=== PATIENT | female | born 1935 | race Caucasian/White ===

== ENCOUNTER 2016-09-23 09:44 | Emergency (ER) | payer OTHER, BC ==
--- NOTE | 2016-09-23 09:47 | EDPHY ---
H & P Time Seen by Provider: 09/23/16 09:44 HPI/ROS: CHIEF COMPLAINT: Shortness of breath. HISTORY OF PRESENT ILLNESS: This is an 81-year-old female with a history of COPD who has had productive cough x 1 week presenting via EMS. This morning at 0200 and 0600 she had episodes of shortness of breath. She used nebulizer treatments with some relief. She admits associated headache this morning. Denies chest pain. She reports that since last week she has woken up with difficulty breathing due to chest congestion and phlegm in her throat. She uses 2L Oxygen at night for sleep apnea. EMS administered 3ml IH DuoNeb en route. REVIEW OF SYSTEMS: Constitutional: No fever, no chills Eyes: No visual changes ENT: No sore throat Respiratory: See HPI. Cardiac: No chest pain Gastrointestinal: No nausea, no vomiting, no abdominal pain Genitourinary: no dysuria Musculoskeletal: No leg pain or swelling Skin: No rash Neurological: no weakness Psychiatric: No depression Past Medical/Surgical History: COPD, right shoulder surgery, spinal fusion, cellulitis, hysterectomy, bipolar disorder, hypothyroidism, sleep apnea, bladder suspension. Social History: Lives alone. Smoking Status: Former smoker Physical Exam: General Appearance: Alert, smiling, pleasant Eyes: Pupils equal and round, no conjunctival pallor or injection ENT, Mouth: Mucous membranes moist Neck: Normal inspection Respiratory: Normal respiratory rate, scattered end-expiratory wheezing with coughing only. Cardiovascular: Regular rate and rhythm Gastrointestinal: Abdomen is soft and non-tender Neurological: A&O, nonfocal exam Skin: Warm and dry, no rash Extremities: Nontender, no pedal edema Psychiatric: Mood and affect normal Constitutional: Initial Vital Signs Temperature (C) 36.6 C 09/23/16 09:44 Heart Rate 95 09/23/16 09:44 Respiratory Rate 20 09/23/16 09:44 Blood Pressure 109/88 H 09/23/16 09:44 O2 Sat (%) 96 09/23/16 09:44 O2 Delivery Mode Room Air O2 (L/minute) 2 Allergies/Adverse Reactions: codeine [Codeine] Allergy (Severe, Verified 10/31/15 09:45) Nausea levofloxacin [From Levaquin] Allergy (Severe, Verified 10/31/15 09:45) Delirium meperidine HCl [From Demerol] Allergy (Severe, Verified 10/31/15 09:45) Suppressed Respirations Sulfa (Sulfonamide Antibiotics) Allergy (Severe, Verified 10/31/15 09:45) Rash aripiprazole [From Abilify] Allergy (Intermediate, Verified 10/31/15 09:45) hallucinations diazepam [From Valium] Allergy (Verified 10/31/15 09:45) hydromorphone HCl [From Dilaudid] Allergy (Verified 10/31/15 09:45) morphine Allergy (Verified 10/31/15 09:45) Respiratory Arrest Home Medications: Medication Instructions Recorded Escitalopram Oxalate [Lexapro 10 20 mg PO DAILY 02/10/12 MG] Levothyroxine [Synthroid 75 mcg 75 mcg PO DAILY06 02/10/12 (*)] lamOTRIGine [Lamotrigine] 200 mg PO DAILY 02/10/12 Quetiapine Fumarate [Seroquel Xr] 225 mg PO HS 11/13/13 Cholecalciferol Vit D3 [Vitamin D3 2,000 units PO DAILY 08/14/14 (*)] Cyanocobalamin [Vitamin B12 (*)] 500 mcg PO DAILY 08/14/14 Herbals/Supplements -Info Only 1 ea PO DAILY 08/14/14 Thiamine HCl [Vitamin B-1] 100 mg PO DAILY8 08/14/14 Albuterol [Proventil] 2 inh IH BID PRN 08/21/14 Meclizine HCl [Meclizine HCl 25 mg 25 mg PO BID PRN #10 tab 12/07/15 (RX,OTC)] Hydrocodone/APAP 5/325 [[place] 1 - 2 tab PO Q4 PRN #10 tab 01/03/16 5/325 (RX)] Doxycycline Hyclate 100 mg PO BID #20 tablet 09/23/16 predniSONE 1 tab PO DAILY #15 tab 09/23/16 Medical Decision Making - Diagnostics EKG Interpretation: The 12 lead EKG was interpreted by myself. See hard copy and/or "tracemaster" electronic copy for interpretation. Sinus rhythm rate 90. Left axis deviations, borderline R wave progression, anterior leads. Imaging: Chest x-ray reviewed by me reveals no acute disease. ED Course/Re-evaluation: This patient presents with a one-week history of productive cough and episodic shortness of breath, somewhat relieved with home nebulizers, now resolved. On exam oxygen saturation is 94% on room air and she has scattered expiratory wheezing only. There is no evidence of pneumonia on chest x-ray. Solu-Medrol 125 mg IV given. I doubt acute coronary syndrome. Given that the shortness of breath started 8+ hours ago, I will check a troponin. If the troponin is normal , I feel that I can safely exclude acute coronary syndrome. An IV was established and labs ordered. Chest x-ray, EKG ordered. 1037: Patient was ambulated through the emergency department. She felt slightly dizzy and her oxygen saturation was 90% on room air. This is likely because she did not eat this morning and hardly slept at all. I will reassess her after she eats breakfast. 1250: Reassessed patient. She is feeling better and ambulated without difficulty the second time. She wants to go home. Her daughter will take her home. She was given return precautions and warnings prior to leaving. I answered all of her questions. She is comfortable with the plan. Differential Diagnosis: Differential diagnosis includes does not limited to pneumonia, persistent bronchospasm, hypoxia, pulmonary embolism, acute coronary syndrome. - Data Points Laboratory Results: Laboratory Results 09/23/16 09:47 09/23/16 09:47 09/23/16 09/23/16 11:24 09:47 WBC 8.21 10^3/uL (3.80-9.50) RBC 4.33 10^6/uL (4.18-5.33) Hgb 13.9 g/dL (12.6-16.3) Hct 42.1 % (38.0-47.0) MCV 97.2 fL (81.5-99.8) MCH 32.1 pg (27.9-34.1) MCHC 33.0 g/dL (32.4-36.7) RDW 12.3 % (11.5-15.2) Plt Count 251 10^3/uL (150-400) MPV 9.8 fL (8.7-11.7) Neut % (Auto) 54.7 % (39.3-74.2) Lymph % (Auto) 30.7 % (15.0-45.0) [place] % (Auto) 7.6 % (4.5-13.0) Eos % (Auto) 5.4 % (0.6-7.6) Baso % (Auto) 1.1 % (0.3-1.7) Nucleat RBC Rel Count 0.0 % (0.0-0.2) Absolute Neuts (auto) 4.50 10^3/uL (1.70-6.50) Absolute Lymphs (auto) 2.52 10^3/uL (1.00-3.00) Absolute Monos (auto) 0.62 10^3/uL (0.30-0.80) Absolute Eos (auto) 0.44 H 10^3/uL (0.03-0.40) Absolute Basos (auto) 0.09 10^3/uL (0.02-0.10) Absolute Nucleated RBC 0.00 10^3/uL (0-0.01) Immature Gran % 0.5 % (0.0-1.1) Immature Gran # 0.04 10^3/uL (0.00-0.10) Sodium 144 mEq/L (134-144) Potassium 4.3 mEq/L (3.5-5.2) Chloride 107 mEq/L (97-110) Carbon Dioxide 26 mEq/l (22-31) Anion Gap 11 mEq/L (8-16) BUN 32 H mg/dL (7-23) Creatinine 0.9 mg/dL (0.6-1.0) Estimated GFR > 60 Glucose 95 mg/dL (70-100) Calcium 9.3 mg/dL (8.5-10.4) Troponin I < 0.012 ng/mL (0-0.034) Medications Given: Discontinued Medications Methylprednisolone Sodium Succinate (Solu-Medrol) 125 mg IVP EDNOW ONE Stop: 09/23/16 10:18 Last Admin: 09/23/16 10:40 Dose: 125 mg Departure - Departure Disposition: Home, Routine, Self-Care Clinical Impression: Shortness of breath Condition: Good Instructions: Dyspnea (ED) Additional Instructions: Take Doxycycline and Prednisone as prescribed. Follow up with your primary care provider if symptoms are not improving after 2- 3 days. Return to the emergency department for chest pain, worsening shortness of breath , fever, or other serious worsening of condition. Referrals: Marisol Mejía MD [Primary Care Provider] - As per Instructions Prescriptions: Doxycycline Hyclate 100 mg PO BID #20 tablet predniSONE 1 tab PO DAILY #15 tab Report Scribed for: Tamanna Washington Report Scribed by: Calixto Metcalf Date of Report: 09/23/16 Time of Report: 09:47 Physician Review and Approval Statement: 09/23/16 09:47 Portions of this note were transcribed by a medical biller. I personally performed a history, physical exam, medical decision making, and confirmed accuracy of information the transcribed note.
[2016-09-23 09:53] LABS: % IMMATURE GRANULYOCYTES 0.5 % (0.0-1.1); ABSOLUTE IMMATURE GRANULOCYTES 0.04 10^3/uL (0.00-0.10); ADD DIFF? NO; ADD MORPH? NO; ADD SCAN? NO; ATYPICAL LYMPHOCYTE FLAG 10 (0-99); FRAGMENT RBC FLAG 0 (0-99); HEMATOCRIT 42.1 % (38.0-47.0); HEMOGLOBIN 13.9 g/dL (12.6-16.3); LEFT SHIFT FLG 0 (0-99); LIPEMIA HEMOLYSIS FLAG 80 (0-99); MEAN CELL HEMOGLOBIN 32.1 pg (27.9-34.1); MEAN CELL VOLUME 97.2 fL (81.5-99.8); MEAN PLATELET VOLUME 9.8 fL (8.7-11.7); PLATELET CLUMPS FLAG 0 (0-99); PLATELET COUNT 251 10^3/uL (150-400); RED BLOOD CELL COUNT 4.33 10^6/uL (4.18-5.33); RED CELL DISTRIBUTION WIDTH 12.3 % (11.5-15.2)
--- NOTE | 2016-09-23 09:56 | CPEKG ---
Heart Rate: 90 RR Interval: 667 P-R Interval: 136 QRSD Interval: 86 QT Interval: 364 QTC Interval: 446 P [place]: -35 QRS [place]: -30 T Wave [place]: 34 EKG Severity - BORDERLINE ECG - EKG Impression: SINUS RHYTHM EKG Impression: LEFT AXIS DEVIATION EKG Impression: BORDERLINE R WAVE PROGRESSION, ANTERIOR LEADS Electronically Signed By: Tamanna Washington 23-Sep-2016 14:53:07
[2016-09-23 10:10] LABS: ANION GAP 11 mEq/L (8-16); CALCIUM 9.3 mg/dL (8.5-10.4); CARBON DIOXIDE 26 mEq/l (22-31); CHLORIDE 107 mEq/L (97-110); CREATININE 0.9 mg/dL (0.6-1.0); GLOMERULAR FILTRATION RATE > 60; GLUCOSE 95 mg/dL (70-100); POTASSIUM 4.3 mEq/L (3.5-5.2); SODIUM 144 mEq/L (134-144)
[2016-09-23] MEDS ORDERED: methylPREDNISolone SOD SUCC 125 MG/2 ML VIAL IVP ONE (10:17)
--- NOTE | 2016-09-23 10:33 | DX ---
PA and Lateral Chest September 23, 2016 0932 hours Clinical Indications: Dyspnea. Comparison: October 31, 2015. Findings: The lungs are clear, and no masses are found. The heart and pulmonary vessels are normal. There are no pleural effusions and no pneumothorax. The bones are unremarkable for this age. Impression: No acute cardiopulmonary process.
[2016-09-23 11:55] VITALS: O2SAT 94
[2016-09-23 12:58] VITALS: BP 126/91; PULSE 92; RESP 18; TEMP 98.2
== END 2016-09-23 12:58 | disposition home or self-care (01) ==
LOC: EDUNIT#
DX: R06.02 Shortness of breath (principal); J44.9 Chronic obstructive pulmonary disease, unspecified; Z87.891 Personal history of nicotine dependence
CPT/HCPCS: 96374

== ENCOUNTER 2016-10-06 11:11 | Inpatient (IN) | payer OTHER, BC ==
[2016-10-06] MEDS ORDERED: ONDANSETRON 4 MG/2 ML VIAL IVP ONE (11:35)
[2016-10-06] MEDS ORDERED: NS 1,000 ML IV ONE ×2 (11:36→11:58)
--- NOTE | 2016-10-06 11:38 | CPEKG ---
Heart Rate: 84 RR Interval: 714 P-R Interval: 144 QRSD Interval: 82 QT Interval: 364 QTC Interval: 431 P [place]: 32 QRS [place]: -23 T Wave [place]: 41 EKG Severity - ABNORMAL ECG - EKG Impression: SINUS RHYTHM EKG Impression: LEFT ATRIAL ABNORMALITY EKG Impression: BORDERLINE LEFT AXIS DEVIATION EKG Impression: sinus rhythm, no acute ischemic changes. Electronically Signed By: Brody Eden 06-Oct-2016 12:07:17
--- NOTE | 2016-10-06 12:05 | EDPHY ---
H & P Stated Complaint: dizziness since AM Time Seen by Provider: 10/06/16 11:43 HPI/ROS: CHIEF COMPLAINT: Dizziness HISTORY OF PRESENT ILLNESS: Patient is an 81-year-old female who presents to the emergency department with her daughter complaining of lightheadedness and dizziness when standing primarily. She 1st noticed it when trying to get out of bed this morning she states that she rolled over a felt dizzy and had flopped back onto her back. She denies any recent falls or head injuries. She was treated with antibiotics for pneumonia 2 weeks ago and has recovered completely. She has been wearing her oxygen at baseline and does not feel short of breath. No chest pain or palpitations. She does not have any lightheadedness at rest or in bed only when standing up. No nausea or vomiting. no weakness or numbness. REVIEW OF SYSTEMS: Constitutional: denies: chills, fever, recent illness, recent injury EENTM: denies: blurred vision, double vision, nose congestion Respiratory: denies: cough, shortness of breath Cardiac: denies: chest pain, irregular heart rate, lightheadedness, palpitations Gastrointestinal/Abdominal: denies: abdominal pain, diarrhea, nausea, vomiting, blood streaked stools Genitourinary: denies: dysuria, frequency, hematuria, pain Musculoskeletal: denies: joint pain, muscle pain Skin: denies: lesions, rash, jaundice, bruising Neurological: See HPI, denies: headache, numbness, paresthesia, tingling, weakness Hematologic/Lymphatic: denies: blood clots, easy bleeding, easy bruising Immunologic/allergic: denies: HIV/AIDS, transplant EXAM: GENERAL: Well-appearing, well-nourished and in no acute distress. HEAD: Atraumatic, normocephalic. EYES: No nystagmus at rest or with provocative testing with Hallpike maneuver. Pupils equal round and reactive to light, extraocular movements intact, sclera anicteric, conjunctiva are normal. ENT: TMs normal, nares patent, oropharynx clear without exudates. Slightly dry mucous membranes. NECK: Normal range of motion, supple without lymphadenopathy or JVD. LUNGS: Breath sounds clear to auscultation bilaterally and equal. No wheezes rales or rhonchi. HEART: Regular rate and rhythm without murmurs, rubs or gallops. ABDOMEN: Soft, nontender, normoactive bowel sounds. No guarding, no rebound. No masses appreciated. BACK: No CVA tenderness, no spinal tenderness, step-offs or deformities EXTREMITIES: Normal range of motion, no pitting or edema. No clubbing or cyanosis. NEUROLOGICAL: NIH stroke score is 0. Cranial nerves II through XII grossly intact. Normal speech, normal gait. 5/5 strength, normal movement in all extremities, normal sensation PSYCH: Normal mood, normal affect. SKIN: Warm, dry, normal turgor, no visible rashes or lesions. Source: Patient Exam Limitations: No limitations - Personal History Current Tetanus/Diphtheria Vaccine: Unsure Current Tetanus Diphtheria and Acellular Pertussis (TDAP): Unsure Tetanus Vaccine Date: 2009 - Medical/Surgical History Hx Asthma: Yes Hx Chronic Respiratory Disease: Yes Hx Diabetes: No Hx Cardiac Disease: No Hx Renal Disease: No Hx Cirrhosis: No Hx Alcoholism: No Hx HIV/AIDS: No Hx Splenectomy or Spleen Trauma: No Other PMH: HX: RIGHT SHOULDER SURGERY, SPINAL FUS, WOUND/FUNGAL DEBRIDMENT FOR LEFT LEG, CELLULITIS, COPD, HYSTERECTOMY, BIPOLAR, HYPOTHYROID, SLEEP APNEA, Bladder suspension - Family History Significant Family History: No pertinent family hx - Social History Smoking Status: Former smoker Alcohol Use: Sober Drug Use: None Constitutional: Initial Vital Signs Temperature (C) 36.5 C 10/06/16 11:12 Heart Rate 92 10/06/16 11:12 Respiratory Rate 16 10/06/16 11:12 Blood Pressure 108/73 10/06/16 11:12 O2 Sat (%) 90 L 10/06/16 11:12 O2 Delivery Mode Nasal [place] O2 (L/minute) 2 Allergies/Adverse Reactions: codeine [Codeine] Allergy (Severe, Verified 10/31/15 09:45) Nausea levofloxacin [From Levaquin] Allergy (Severe, Verified 10/31/15 09:45) Delirium meperidine HCl [From Demerol] Allergy (Severe, Verified 10/31/15 09:45) Suppressed Respirations Sulfa (Sulfonamide Antibiotics) Allergy (Severe, Verified 10/31/15 09:45) Rash aripiprazole [From Abilify] Allergy (Intermediate, Verified 10/31/15 09:45) hallucinations diazepam [From Valium] Allergy (Verified 10/31/15 09:45) hydromorphone HCl [From Dilaudid] Allergy (Verified 10/31/15 09:45) morphine Allergy (Verified 10/31/15 09:45) Respiratory Arrest Home Medications: Medication Instructions Recorded Levothyroxine [Synthroid 75 mcg 75 mcg PO DAILY06 02/10/12 (*)] Cholecalciferol Vit D3 [Vitamin D3 2,000 units PO DAILY 08/14/14 (*)] Acetaminophen [Tylenol 325mg (*)] 325 mg PO DAILY PRN 10/06/16 Albuterol [Proventil Inhaler HFA 1 - 2 puffs IH DAILY PRN 10/06/16 (*)] Albuterol [Proventil Neb] 3 ml IH DAILY PRN 10/06/16 C/E/Zn/Cu/OM3/DHA/EPA/LUT/ZEAX 1 each PO DAILY 10/06/16 [Preservision Areds 2 Softgel] Hydrocodone/APAP 5/325 [[place] 1 tab PO DAILY PRN 10/06/16 5/325 (RX)] Multivitamins [Multivitamin (*)] 1 each PO DAILY 10/06/16 QUEtiapine FUMARATE [Seroquel 25 75 mg PO HS 10/06/16 mg (*)] lamoTRIgine [LamICTAL 100 MG (*)] 200 mg PO DAILY 10/06/16 Medical Decision Making - Diagnostics EKG Interpretation: An EKG obtained and was read and documented in trace view. Please see trace view for full reading and report. Sinus rhythm, no acute ischemic changes, rate of 84. Imaging: Results: CT scan of the head was obtained. The results of the study are negative. The study was read by Dr. Miller Means. I viewed the images myself on the PACS system. X-ray: chest x-ray was obtained. I viewed the images myself on the PACS system. My interpretation of the images is: negative for acute disease . The radiologist interpretation is pending. ED Course/Re-evaluation: Orthostatics completed here in the emergency department. They are negative. her blood pressure actually increased with standing. She did complain of a mild headache though. 1:00 p.m. I discussed the case with Dr. Dorys Lazar who will admit to the medical service under Dr. Barrios. So far no abnormality seen on imaging or lab work. Urinalysis pending.. Differential Diagnosis: Partial list of the Differential diagnosis considered include but were not limited to; weakness, orthostatics, dehydration, infection and although unlikely based on the history and physical exam, I also considered electrolyte abnormality, head injury, seizure, stroke. - Data Points Laboratory Results: Laboratory Results 10/06/16 11:30 10/06/16 11:30 10/06/16 11:30 WBC 11.39 H 10^3/uL (3.80-9.50) RBC 4.77 10^6/uL (4.18-5.33) Hgb 15.3 g/dL (12.6-16.3) Hct 45.7 % (38.0-47.0) MCV 95.8 fL (81.5-99.8) MCH 32.1 pg (27.9-34.1) MCHC 33.5 g/dL (32.4-36.7) RDW 12.6 % (11.5-15.2) Plt Count 273 10^3/uL (150-400) MPV 10.0 fL (8.7-11.7) Neut % (Auto) 61.6 % (39.3-74.2) Lymph % (Auto) 24.1 % (15.0-45.0) [place] % (Auto) 9.7 % (4.5-13.0) Eos % (Auto) 2.9 % (0.6-7.6) Baso % (Auto) 1.1 % (0.3-1.7) Nucleat RBC Rel Count 0.0 % (0.0-0.2) Absolute Neuts (auto) 7.03 H 10^3/uL (1.70-6.50) Absolute Lymphs (auto) 2.74 10^3/uL (1.00-3.00) Absolute Monos (auto) 1.10 H 10^3/uL (0.30-0.80) Absolute Eos (auto) 0.33 10^3/uL (0.03-0.40) Absolute Basos (auto) 0.12 H 10^3/uL (0.02-0.10) Absolute Nucleated RBC 0.00 10^3/uL (0-0.01) Immature Gran % 0.6 % (0.0-1.1) Immature Gran # 0.07 10^3/uL (0.00-0.10) Sodium 143 mEq/L (134-144) Potassium 4.4 mEq/L (3.5-5.2) Chloride 103 mEq/L (97-110) Carbon Dioxide 26 mEq/l (22-31) Anion Gap 14 mEq/L (8-16) BUN 25 H mg/dL (7-23) Creatinine 1.0 mg/dL (0.6-1.0) Estimated GFR 53 Glucose 101 H mg/dL (70-100) Calcium 9.8 mg/dL (8.5-10.4) Total Bilirubin 0.8 mg/dL (0.1-1.4) Conjugated Bilirubin 0.1 mg/dL (0.0-0.5) Unconjugated Bilirubin 0.7 mg/dL (0.0-1.1) AST 28 IU/L (14-46) ALT 30 IU/L (9-52) Alkaline Phosphatase 79 IU/L (38-126) Troponin I < 0.012 ng/mL (0-0.034) Total Protein 6.7 g/dL (6.3-8.2) Albumin 3.8 g/dL (3.5-5.0) Medications Given: Discontinued Medications Sodium Chloride (Ns) 1,000 mls @ 0 mls/hr IV ONCE ONE PRN Reason: Wide Open Stop: 10/06/16 11:37 Last Admin: 10/06/16 11:43 Dose: 1,000 mls Sodium Chloride (Ns) 1,000 mls @ 0 mls/hr IV ONCE ONE PRN Reason: [place] Stop: 10/06/16 11:59 Last Admin: 10/06/16 12:45 Dose: 1,000 mls Ondansetron HCl (Zofran) 4 mg IVP EDNOW ONE Stop: 10/06/16 11:36 Last Admin: 10/06/16 11:43 Dose: 4 mg Departure - Departure Disposition: [facility] Acute Clinical Impression: Weakness Condition: Fair
[2016-10-06 12:07] LABS: % IMMATURE GRANULYOCYTES 0.6 % (0.0-1.1); ABSOLUTE IMMATURE GRANULOCYTES 0.07 10^3/uL (0.00-0.10); ADD DIFF? NO; ADD MORPH? NO; ADD SCAN? NO; ATYPICAL LYMPHOCYTE FLAG 0 (0-99); FRAGMENT RBC FLAG 0 (0-99); HEMATOCRIT 45.7 % (38.0-47.0); HEMOGLOBIN 15.3 g/dL (12.6-16.3); LEFT SHIFT FLG 0 (0-99); LIPEMIA HEMOLYSIS FLAG 80 (0-99); MEAN CELL HEMOGLOBIN 32.1 pg (27.9-34.1); MEAN CELL HEMOGLOBIN CONCENTR. 33.5 g/dL (32.4-36.7); MEAN CELL VOLUME 95.8 fL (81.5-99.8); PLATELET CLUMPS FLAG 0 (0-99); PLATELET COUNT 273 10^3/uL (150-400); RED BLOOD CELL COUNT 4.77 10^6/uL (4.18-5.33); RED CELL DISTRIBUTION WIDTH 12.6 % (11.5-15.2)
[2016-10-06 12:27] LABS: ALANINE AMINOTRANSFERASE 30 IU/L (9-52); ALBUMIN 3.8 g/dL (3.5-5.0); ALKALINE PHOSPHATASE 79 IU/L (38-126); ANION GAP 14 mEq/L (8-16); ASPARTATE AMINOTRANSFERASE 28 IU/L (14-46); BILIRUBIN,TOTAL 0.8 mg/dL (0.1-1.4); BILIRUBIN-CONJUGATED 0.1 mg/dL (0.0-0.5); BILIRUBIN-UNCONJUGATED 0.7 mg/dL (0.0-1.1); CALCIUM 9.8 mg/dL (8.5-10.4); CARBON DIOXIDE 26 mEq/l (22-31); CHLORIDE 103 mEq/L (97-110); GLOMERULAR FILTRATION RATE 53; GLUCOSE 101 mg/dL (70-100); POTASSIUM 4.4 mEq/L (3.5-5.2); SODIUM 143 mEq/L (134-144); TOTAL PROTEIN 6.7 g/dL (6.3-8.2)
[2016-10-06 12:37] LABS: TROPONIN I < 0.012 ng/mL (0-0.034)
--- NOTE | 2016-10-06 12:52 | DX ---
PA and lateral chest. October 06, 2016. Clinical History: Dizziness. Comparison Study: September 23, 2016. Findings: Mild underlying interstitial lung disease is present within both lungs, unchanged. No focal infiltrate, pleural effusion, pneumothorax. Heart size remains normal.. Visualized osseous structures appear normal. Impression: Stable negative chest.
--- NOTE | 2016-10-06 13:23 | CT ---
CT head without contrast HISTORY: Dizziness TECHNIQUE: Multidetector helical CT was performed through the head using dose reduction technology. FINDINGS: Diffuse cortical atrophy is mild for this age, unchanged from 2010. No masses are found. No evidence of intracranial hemorrhage. Ventricles are symmetrical. Bones are intact. No fluid in the p aranasal sinuses and mastoid air cells. Internal auditory canals appear unchanged. The maxilla is remberto ntulous. Impression: Mild diffuse cortical atrophy, unchanged from 2010.
[2016-10-06 14:14] LABS: COLOR YELLOW; LEUKOCYTE ESTERASE,URINE TRACE (NEGATIVE); NITRITE,URINE NEGATIVE (NEGATIVE)
[2016-10-06 14:23] LABS: MUCUS TRACE /lpf (NONE-1+)
[2016-10-06] MEDS ORDERED: ONDANSETRON DISINTEGRATING 4 MG TAB PO PRN (14:32)
[2016-10-06] MEDS ORDERED: ONDANSETRON 4 MG/2 ML VIAL IVP PRN (14:32)
[2016-10-06] MEDS ORDERED: ALBUTEROL 3 ML DEYVIAL NEB PRN (16:38)
[2016-10-06] MEDS ORDERED: ALBUTEROL 60 PUFFS/8 GM MDI IH PRN (16:38)
--- NOTE | 2016-10-06 17:08 | GHP ---
[f rep st] HISTORY AND PHYSICAL DATE OF ADMISSION: 10/06/2016 CHIEF COMPLAINT: Dizziness. HISTORY OF PRESENT ILLNESS: An 81-year-old female with a history of lymphocytic colitis and hypothyr oidism who presents with complaints of lightheadedness that began the morning of presentation. The p atient denies any subjective fevers or chills. Denies any vision changes, floaters, dysphagia, palpi tations, shortness of breath, chest pain, abdominal discomfort, changes in her bowel habits, dysuria, hematuria, bloody stools, lower extremity edema or rashes. The patient did have a preceding upper r espiratory infection in the last couple weeks that was treated with prednisone and antibiotics. She has had resolution of those symptoms. She denies any concurrent numbness, tingling or weakness in he r extremities. PAST MEDICAL HISTORY: For this patient: 1. Hypothyroidism. 2. COPD, on nocturnal oxygen. 3. Sleep apnea. 4. Lymphocytic colitis. SOCIAL HISTORY: Thirty-eight pack-year history of smoking, none currently. Occasional alcohol. No illicit drugs or marijuana. FAMILY HISTORY: Positive for multiple cancers and diabetes. ADVANCE DIRECTIVES: The patient is do not resuscitate. Her daughter would be her medical decision francois hendricks. REVIEW OF SYSTEMS: A 10-point review of systems is negative, with the exception of that reported in the HPI. PHYSICAL EXAMINATION: VITAL SIGNS: Blood pressure 117/69, heart rate 88, respiratory rate 17, 95% o n 2 L, 36.5. GENERAL: This is a very healthy-appearing elderly female in no acute distress. HEENT: Notable for moist mucous membranes. Eye exam is negative for any icterus. CARDIAC: Patient is re gular rate and rhythm. Systolic murmur is appreciated. PULMONARY: Clear to auscultation. Good res piratory effort. No rales or rhonchi. GASTROINTESTINAL: Positive bowel sounds. Abdomen is soft an d nontender to palpation in all 4 quadrants. MUSCULOSKELETAL: Negative for any lower extremity matthias a. SKIN: Negative for any rashes. NEUROLOGIC: The patient is alert and oriented x3. PSYCHIATRIC: She is pleasant and cooperative on interview and examination. IMAGING: Noncontrast CT of the head shows no acute intracranial process. Chest x-ray, which I personally reviewed and interpreted, shows no acute infiltrates or edema. EKG, which I personally reviewed and interpreted, shows sinus rhythm, leftward axis deviation, with n o acute ST-T changes. LABORATORY DATA: White count 11.3, baseline, appears normal, hematocrit 45.7, platelets of 273. Cre atinine 1.0. Troponin less than 0.012. Sodium 143. ASSESSMENT AND PLAN: 1. This is an 81-year-old female presenting with dizziness. Differential would include hypovolemia, occult urinary tract infection, possible cardiac dysrhythmia. Will admit the patient for observatio n and cardiac monitoring, fluid resuscitation. We will check a urinalysis to rule out occult UTI. W ill additionally order PT/OT for evaluation. The patient's initial workup is negative for any concer hailey abnormality. We will recycle labs, and continue patient's home medications. 2. Chronic obstructive pulmonary disease. The patient is on outpatient inhalers, which we will cont inue to monitor in the inpatient setting. 3. Hypothyroidism. We will check her TSH, and continue her Synthroid therapy. 4. Bipolar. We will continue her home medications. 5. Prophylaxis with Lovenox. 6. Diet: Regular. DISPOSITION: I expect less than 2 midnights, as the patient's monitoring and laboratory evaluation i s negative. I discussed the case with the emergency room physician. Patient will be triaged to the medical/surgical floor for cardiac monitoring and workup. /[id number]/MODL
[2016-10-06] MEDS: ACETAMINOPHEN 325 MG TAB PO PRN (17:42)
[2016-10-06] MEDS ORDERED: QUEtiapine FUMARATE 25 MG TAB PO SCH (21:00)
[2016-10-06] MEDS ORDERED: MELATONIN 3 MG TAB PO SCH (23:00)
[2016-10-06] MEDS: MELATONIN 3 MG TAB PO SCH (23:11)
[2016-10-07 05:35] LABS: % IMMATURE GRANULYOCYTES 0.7 % (0.0-1.1); ABSOLUTE IMMATURE GRANULOCYTES 0.06 10^3/uL (0.00-0.10); ADD DIFF? NO; ADD MORPH? NO; ADD SCAN? NO; ATYPICAL LYMPHOCYTE FLAG 20 (0-99); FRAGMENT RBC FLAG 0 (0-99); HEMATOCRIT 41.3 % (38.0-47.0); HEMOGLOBIN 13.3 g/dL (12.6-16.3); LEFT SHIFT FLG 0 (0-99); LIPEMIA HEMOLYSIS FLAG 80 (0-99); MEAN CELL HEMOGLOBIN 31.7 pg (27.9-34.1); MEAN CELL HEMOGLOBIN CONCENTR. 32.2 g/dL (32.4-36.7); MEAN CELL VOLUME 98.6 fL (81.5-99.8); MEAN PLATELET VOLUME 10.2 fL (8.7-11.7); PLATELET CLUMPS FLAG 0 (0-99); PLATELET COUNT 224 10^3/uL (150-400); RED BLOOD CELL COUNT 4.19 10^6/uL (4.18-5.33); RED CELL DISTRIBUTION WIDTH 12.8 % (11.5-15.2)
[2016-10-07 05:52] LABS: ANION GAP 8 mEq/L (8-16); CARBON DIOXIDE 27 mEq/l (22-31); CHLORIDE 107 mEq/L (97-110); GLOMERULAR FILTRATION RATE 53; GLUCOSE 94 mg/dL (70-100); POTASSIUM 4.5 mEq/L (3.5-5.2); SODIUM 142 mEq/L (134-144)
[2016-10-07] MEDS: LEVOTHYROXINE 75 MCG TAB PO SCH (06:20)
[2016-10-07] MEDS: PRESERVISION AREDS2 FORMULA EYE VIT 1 EACH PO SCH (07:30)
[2016-10-07] MEDS: CHOLECALCIFEROL VIT D3 1,000 UNITS TAB PO SCH (07:30)
[2016-10-07] MEDS: MULTIVITAMINS 1 EACH TAB PO SCH (07:31)
[2016-10-07] MEDS: lamoTRIgine 100 MG TAB PO SCH (07:31)
[2016-10-07] MEDS: ENOXAPARIN 40 MG/0.4 ML SYR SC SCH (07:32)
[2016-10-07] MEDS: ACETAMINOPHEN 325 MG TAB PO PRN (07:39)
[2016-10-07] MEDS: HYDROCODONE/APAP 5/325 TAB PO PRN (12:25)
--- NOTE | 2016-10-07 15:14 | ECHO ---
[id number] + + [address] : : [place] [address] : : [phone] + + Adult Echocardiographic Report + + :Name: GUILLERMINA BEE Date: 10/07/2016 02:15 PM : : Hospital Admission Number: [id number] Loc ation: 347: :: 1935 Gender: Female Height: 62 in : :Age: 81 yrs Race: WH Weight: 164 lb : :Reason For Study: hypoxemia, dizziness : : BSA: 1.8 me ters2 : + + MMode/2D Measurements & Calculations IVSd: 1.4 cm LVIDd: 3.6 cm FS: 42.1 % LVOT diam: 1.8 cm LVPWd: 0.85 cm LVIDs: 2.1 cm EDV(Teich): LVOT area: 54.8 ml 2.7 cm2 ESV(Teich): 14.2 ml EF(Teich): 74.0 % LVLd ap4: 7.0 cm SV(MOD-sp4): EDV(MOD-sp4): 46.0 ml 61.0 ml LVLs ap4: 5.6 cm ESV(MOD-sp4): 15.0 ml EF(MOD-sp4): 75.4 % Normal Measurement Values: + + :LVIDd (3.5-5.7cm) IVSd (0.6-1.1cm) LVPWd (0.6-1.1cm) Aortic Root (2.0-3.7cm)Left Atrium (1.5-4.0cm): :LV Vol(d) (76-115ml) LV Vol(s) (29-48ml) Ejec Fraction (50-65%)PV Rolando (0.6- 1.2m/s) TV Rolando (0.4-1.0m/s) : :MV E Rolando (0.8-1.0m/s)MV A Rolando (0.3-1.0m/s)LVOT Rolando (0.7-1.2m/s) Asc Ao Rolando ( 0.9-1.8m/s) : + + Doppler Measurements & Calculations MV E max rolando: MV V2 mean: Ao mean PG: LV V1 max: 53.2 cm/sec 43.4 cm/sec 3.4 mmHg 76.4 cm/sec MV A max rolando: MV mean PG: Ao V2 mean: LV V1 max P.6 cm/sec 0.84 mmHg 88.0 cm/sec 2.3 mmHg MV E/A: 0.84 MV V2 VTI: 16.3 cm Ao V2 VTI: 26.0 cmLV V1 mean PG: MV dec time: MVA(VTI): 2.6 cm2 SERG(I,D): 1.7 cm2 1.2 mmHg 0.25 sec LV V1 mean: 51.1 cm/sec LV V1 VTI: 16.2 cm SV(LVOT): 43.2 ml PA V2 max: RAP systole: 80.7 cm/sec 10.0 mmHg PA max P.6 mmHg Left Ventricle The left ventricle is normal in size and function. There is normal left ventricular wall thickness. Ejection Fraction = 70%. There is Doppler evidence for diastolic dysfunction. No regional wall motion abnormalities noted. Right Ventricle The right ventricle is normal in size and function. Atria The left atrial size is normal. Right atrial size is normal. A prominent eustachian valve is noted. The interatrial septum is intact with no evidence for an atrial septal defect. Mitral Valve The mitral valve is normal in structure and function. There is no mitral valve stenosis. There is trace mitral regurgitation. Tricuspid Valve The tricuspid valve is normal in structure and function. There is no tricuspid stenosis. There is trace tricuspid regurgitation. Right ventricular systolic pressure is normal. Aortic Valve The aortic valve is normal in structure and function. There is no aortic stenosis. There is no aortic insufficiency. Pulmonic Valve The pulmonic valve is not well visualized. There is no pulmonic valvular stenosis. There is no pulmonic valvular regurgitation. Great Vessels The aortic root is normal size. Pericardium/Pleural There is a fat pad seen. Conclusion A complete two-dimensional transthoracic echocardiogram was performed (2D, M-mode, Doppler and color flow Doppler). The left ventricle is normal in size and function. Ejection Fraction = 70%. There is Doppler evidence for diastolic dysfunction. There is trace mitral regurgitation. There is trace tricuspid regurgitation. Right ventricular systolic pressure is normal. The aortic valve is normal in structure and function. Final Reading Physician: Chuck Espino signed on 10/07/2016 03:12 PM Ordering Physician: Kaitlin Springer Performed By: Crystal Jorgensen
--- NOTE | 2016-10-07 16:50 | HOSPPROG ---
Hospitalist Progress Note Assessment/Plan: Dizziness - Orthostatic negative in ED. No events on telemetry. Her symptoms seem to occur when she does activity while off her O2 and I suspect hypoxemia is contributing to her symptoms. Will check echo to evaluate LV function. PT/ OT evals to assess functional capacity. Chronic hypoxemic respiratory failure secondary to COPD and central sleep apnea - She is not compliant with her O2 and does require 2 LPM. Without it, she desats. I suspect she is developing symptomatic hypoxemia. -Cont prn albuterol -Add Spiriva DNR Dispo - continue inpt due to further w/u of her hypoxemia and dizziness including echocardiogram and need for acute PT/OT. Subjective: PT feels fine. She reported another episode of feeling off balance and dizzy when rising from bed and going to the BR while not wearing her O2. No CP, SOB. No fevers. Objective: Vital Signs Temp Pulse Resp BP Pulse Ox 36.9 C 87 18 102/68 92 10/07/16 11:58 10/07/16 14:50 10/07/16 14:50 10/07/16 14:50 10/07/16 14:50 - Physical Exam Constitutional: no apparent distress Eyes: PERRL Ears, Nose, Mouth, Throat: moist mucous membranes Cardiovascular: regular rate and rhythym Respiratory: no respiratory distress, clear to auscultation Gastrointestinal: normoactive bowel sounds, soft, non-tender abdomen Skin: warm Neurologic: AAOx3 Psychiatric: interacting appropriately ICD10 Worksheet Patient Problems: Problems Problem Status Diagnosed Weakness Acute Chronic obstructive lung disease Acute Female stress incontinence Acute Grade 3 rectocele Acute
[2016-10-07] MEDS ORDERED: MELATONIN 3 MG TAB PO SCH (21:00)
[2016-10-07] MEDS: QUEtiapine FUMARATE 25 MG TAB PO SCH (22:04)
[2016-10-07] MEDS: MELATONIN 3 MG TAB PO SCH (22:04)
[2016-10-07] MEDS: QUEtiapine FUMARATE 200 MG TAB PO SCH (22:04)
[2016-10-07] MEDS: TIOTROPIUM INHALER 18 MCG/DOSE 5 DOSE/MDI IH SCH (22:28)
[2016-10-08] MEDS: HYDROCODONE/APAP 5/325 TAB PO PRN ×2 (04:43→09:47)
[2016-10-08] MEDS: LEVOTHYROXINE 75 MCG TAB PO SCH (04:43)
[2016-10-08] MEDS: CHOLECALCIFEROL VIT D3 1,000 UNITS TAB PO SCH (09:13)
[2016-10-08] MEDS: PRESERVISION AREDS2 FORMULA EYE VIT 1 EACH PO SCH (09:13)
[2016-10-08] MEDS: MULTIVITAMINS 1 EACH TAB PO SCH (09:13)
[2016-10-08] MEDS: ENOXAPARIN 40 MG/0.4 ML SYR SC SCH (09:14)
[2016-10-08] MEDS: lamoTRIgine 100 MG TAB PO SCH (09:14)
[2016-10-08] MEDS: TIOTROPIUM INHALER 18 MCG/DOSE 5 DOSE/MDI IH SCH (09:26)
[2016-10-08] MEDS ORDERED: IOPAMIDOL (ISOVUE 370) 100 ML BTL IV ONE (10:43)
--- NOTE | 2016-10-08 12:27 | CT ---
CT Chest Pulmonary Angiography With Contrast Enhancement and Multiplanar Reconstructions at 1155 hour s History: Hypoxemia, tachycardia, presyncope. Comparison: Chest x-ray October 06, 2016. Technique: 1.25 mm axial multidetector helical CT angiogram imaging was performed through the chest w hile 90 mL Isovue-370 were injected intravenously without complication. The images were then transfe rred to an independent workstation where multiplanar and three-dimensional reconstructions were perfo rmed by the interpreting physician and reviewed at multiple windows. Dose reduction techniques were u tilized. CT Pulmonary Angiogram Findings: No CT evidence of definite pulmonary thromboemboli. Mild atheroscle rotic aorta without aneurysm or dissection. Heart is normal in size. CT Chest Findings: No pericardial effusion, pleural effusion or pneumothorax. No significant mediasti nal, hilar or axillary adenopathy. Parenchymal scarring in the lateral segment of the lingula. Minima l dependent atelectasis bilateral lower lobes with questionable 7 mm left lower lobe pulmonary nodule image 115 of series 6. Impression: 1. No definite pulmonary thromboemboli. 2. Atherosclerotic aorta without aneurysm or dissection. 3. Minimal dependent atelectasis left lower lobe with questionable 7 mm left lower lobe pulmonary nod ule versus parenchymal scarring. 4. Parenchymal scarring in the lingula again noted.. Findings and recommendations discussed with Dr. Kaitlin Springer at 1215 hours.
[2016-10-08] MEDS ORDERED: LACTULOSE 20 GM/30 ML UDCUP PO PRN (18:10)
[2016-10-08] MEDS ORDERED: MAGNESIUM HYDROXIDE 30 ML UDCUP PO PRN (18:10)
[2016-10-08] MEDS ORDERED: BISACODYL 10 MG SUPP PR PRN (18:10)
--- NOTE | 2016-10-08 18:13 | HOSPPROG ---
Hospitalist Progress Note Assessment/Plan: Dizziness - Orthostatic negative in ED. No events on telemetry. Her symptoms seem to occur when she does activity while off her O2 and I suspect hypoxemia is contributing to her symptoms. Echo showed nl LV function. Cont PT/OT, recs SNF Chronic hypoxemic respiratory failure secondary to COPD and central sleep apnea - She is not compliant with her O2 and does require 2 LPM. Without it, she desats. I suspect she is developing symptomatic hypoxemia. CTA neg for PE. -Cont prn albuterol -Add Spiriva DNR Dispo - awaiting SNF rehab Subjective: Pt feels ok. Denies CP or SOB. No more dizziness events, more compliant with O2. Objective: Vital Signs Temp Pulse Resp BP Pulse Ox 37.1 C 91 18 104/89 H 93 10/08/16 16:00 10/08/16 16:00 10/08/16 16:00 10/08/16 16:00 10/08/16 16:00 10/07/16 10/08/16 10/09/16 05:59 05:59 05:59 Intake Total 1000 1000 Output Total 350 400 Balance 650 600 - Physical Exam Constitutional: no apparent distress Eyes: PERRL Ears, Nose, Mouth, Throat: moist mucous membranes Cardiovascular: regular rate and rhythym Respiratory: no respiratory distress, clear to auscultation Gastrointestinal: normoactive bowel sounds, soft, non-tender abdomen Skin: warm, normal color Neurologic: AAOx3 Psychiatric: interacting appropriately ICD10 Worksheet Patient Problems: Problems Problem Status Diagnosed Weakness Acute Chronic obstructive lung disease Acute Female stress incontinence Acute Grade 3 rectocele Acute
[2016-10-08] MEDS: MELATONIN 3 MG TAB PO SCH (21:21)
[2016-10-08] MEDS: QUEtiapine FUMARATE 200 MG TAB PO SCH (21:22)
[2016-10-08] MEDS: QUEtiapine FUMARATE 25 MG TAB PO SCH (21:22)
[2016-10-08] MEDS: SENNOSIDES/DOCUSATE SODIUM TAB PO SCH (21:22)
[2016-10-09] MEDS: LEVOTHYROXINE 75 MCG TAB PO SCH (05:10)
[2016-10-09] MEDS: HYDROCODONE/APAP 5/325 TAB PO PRN ×2 (08:13→21:02)
[2016-10-09] MEDS: ENOXAPARIN 40 MG/0.4 ML SYR SC SCH (08:14)
[2016-10-09] MEDS: MULTIVITAMINS 1 EACH TAB PO SCH (08:15)
[2016-10-09] MEDS: CHOLECALCIFEROL VIT D3 1,000 UNITS TAB PO SCH (08:15)
[2016-10-09] MEDS: lamoTRIgine 100 MG TAB PO SCH (08:15)
[2016-10-09] MEDS: PRESERVISION AREDS2 FORMULA EYE VIT 1 EACH PO SCH (08:15)
[2016-10-09] MEDS: SENNOSIDES/DOCUSATE SODIUM TAB PO SCH ×2 (08:15→21:04)
[2016-10-09] MEDS: POLYETHYLENE GLYCOL 3350 17 GM PKT PO PRN (08:21)
[2016-10-09] MEDS: ACETAMINOPHEN 325 MG TAB PO PRN (08:21)
[2016-10-09] MEDS: TIOTROPIUM INHALER 18 MCG/DOSE 5 DOSE/MDI IH SCH (08:47)
--- NOTE | 2016-10-09 11:46 | HOSPPROG ---
Hospitalist Progress Note Assessment/Plan: Dizziness - Orthostatic negative in ED. No events on telemetry. CTA neg for PE. Echo showed nl LV function. Her symptoms seem to occur when she does activity while off her O2 and I suspect hypoxemia is contributing to her symptoms. Cont PT/OT. Chronic hypoxemic respiratory failure secondary to COPD and central sleep apnea - She is not compliant with her O2 and does require 2 LPM. Without it, she desats. I suspect she is developing symptomatic hypoxemia. CTA neg for PE. -Cont prn albuterol -Added Spiriva DNR Dispo - awaiting SNF rehab Subjective: Pt feels well. No more dizziness episodes, she is more compliant with her O2. No fevers, chills, CP or SOB. Tolerating po ewll. Objective: Vital Signs Temp Pulse Resp BP Pulse Ox 36.7 C 90 14 117/62 92 10/09/16 08:00 10/09/16 08:53 10/09/16 08:53 10/09/16 08:00 10/09/16 08:53 10/08/16 10/09/16 10/10/16 05:59 05:59 05:59 Intake Total 1000 1225 Output Total 350 400 Balance 650 825 - Physical Exam Constitutional: no apparent distress Eyes: PERRL Ears, Nose, Mouth, Throat: moist mucous membranes Cardiovascular: regular rate and rhythym Respiratory: no respiratory distress, clear to auscultation Gastrointestinal: normoactive bowel sounds, soft, non-tender abdomen Skin: warm Neurologic: AAOx3 Psychiatric: interacting appropriately ICD10 Worksheet Patient Problems: Problems Problem Status Diagnosed Weakness Acute Chronic obstructive lung disease Acute Female stress incontinence Acute Grade 3 rectocele Acute
[2016-10-09] MEDS: QUEtiapine FUMARATE 200 MG TAB PO SCH (21:03)
[2016-10-09] MEDS: QUEtiapine FUMARATE 25 MG TAB PO SCH (21:03)
[2016-10-09] MEDS: MELATONIN 3 MG TAB PO SCH (21:03)
[2016-10-10] MEDS: LEVOTHYROXINE 75 MCG TAB PO SCH (05:36)
[2016-10-10] MEDS: HYDROCODONE/APAP 5/325 TAB PO PRN (05:38)
[2016-10-10 08:10] VITALS: BP 97/45; TEMP 98.6
[2016-10-10] MEDS: ENOXAPARIN 40 MG/0.4 ML SYR SC SCH (08:19)
[2016-10-10] MEDS: lamoTRIgine 100 MG TAB PO SCH (08:19)
[2016-10-10] MEDS: CHOLECALCIFEROL VIT D3 1,000 UNITS TAB PO SCH (08:20)
[2016-10-10] MEDS: SENNOSIDES/DOCUSATE SODIUM TAB PO SCH (08:20)
[2016-10-10] MEDS: POLYETHYLENE GLYCOL 3350 17 GM PKT PO PRN (08:20)
[2016-10-10] MEDS: PRESERVISION AREDS2 FORMULA EYE VIT 1 EACH PO SCH (08:20)
[2016-10-10] MEDS: MULTIVITAMINS 1 EACH TAB PO SCH (08:20)
[2016-10-10] MEDS: TIOTROPIUM INHALER 18 MCG/DOSE 5 DOSE/MDI IH SCH (08:43)
[2016-10-10] MEDS: ACETAMINOPHEN 325 MG TAB PO PRN (10:11)
--- NOTE | 2016-10-10 11:57 | PDIAF ---
- Diagnosis Diagnosis: COPD, NIKO, chronic hypoxemic respiratory failure Code Status: Do Not Resuscitate - Medication Management Discharge Medications: Medications to Continue on Transfer Levothyroxine [Synthroid 75 mcg (*)] 75 mcg PO DAILY06 02/10/12 [Last Taken ] Cholecalciferol Vit D3 [Vitamin D3 (*)] 2,000 units PO DAILY 08/14/14 [Last Taken 08/25/14] Acetaminophen [Tylenol 325mg (*)] 325 mg PO DAILY PRN 10/06/16 [Last Taken Unknown] Albuterol [Proventil Inhaler HFA (*)] 1 - 2 puffs IH DAILY PRN 10/06/16 [Last Taken Unknown] Albuterol [Proventil Neb] 3 ml IH DAILY PRN 10/06/16 [Last Taken Unknown] C/E/Zn/Cu/OM3/DHA/EPA/LUT/ZEAX [Preservision Areds 2 Softgel] 1 each PO DAILY [Last Taken Unknown] Hydrocodone/APAP 5/325 [[place] 5/325 (*)] 1 tab PO DAILY PRN 10/06/16 [Last Taken Unknown] Multivitamins [Multivitamin (*)] 1 each PO DAILY 10/06/16 [Last Taken Unknown] QUEtiapine FUMARATE [Seroquel 25 mg (*)] 275 mg PO HS 10/06/16 [Last Taken 10/05] lamoTRIgine [LamICTAL 100 MG (*)] 200 mg PO DAILY 10/06/16 [Last Taken 10/06/16] Tiotropium Inhaler [Spiriva Handihaler] 18 mcg IH DAILY #1 mdi 10/10/16 [Last Taken Unknown] Discharge Medications: Refer to the Discharge Home Medication list for PRN reason. - Orders Services needed: Home Care, Registered Nurse, Physical Therapy, Occupational Therapy, Speech Language Pathologist Home Care Face to Face: I certify that this patient was under my care and that I had the required [id number] encounter meeting the encounter requirements on the discharge day. My findings support the fact that the patient is homebound as defined in CMS Chapter 7 Medicare Benefits Manual 30.1.1, The condition of the patient is such that there exists a normal inability to leave home and consequently, leaving home would require a considerable and taxing effort. Diet Recommendation: no restrictions on diet Activity/Weight Bearing Restrictions: WBAT - Follow Up Care Current Providers and Referrals: Marisol Mejía MD [Primary Care Provider] - As per Instructions
[2016-10-10 13:49] VITALS: PULSE 112; RESP 20; O2SAT 87
--- NOTE | 2016-10-10 20:28 | GDS ---
[f rep st] DISCHARGE SUMMARY DISCHARGE DIAGNOSES: 1. Chronic hypoxemic respiratory failure secondary to chronic obstructive pulmonary disease and cent ral sleep apnea. 2. Chronic obstructive pulmonary disease without acute exacerbation. 3. Dizziness, resolved. 4. Questionable left lower lobe pulmonary nodule. CONSULTANTS: None. HISTORY: For details, please see dictated history and physical dated October 07, 2016. In brief, tank harris patient is an 81-year-old female with a history of COPD and chronic O2 dependence at 2 L/min who pr esented to the Emergency Department with lightheadedness. She was admitted to the hospital for furth er evaluation. HOSPITAL COURSE: The patient was admitted to the Medical-Surgical Unit. A consideration was given t o hypovolemia, though her orthostatics were negative. There was no evidence of infection and her uri ne culture grew 4 colony types. She was monitored on telemetry without evidence of cardiac arrhythmi a. Further history revealed that her symptom of dizziness occurred while she was off her oxygen. Darlyn harris frequently removes her oxygen to do activities. She had an event in the hospital where she got up without her oxygen to the bathroom and states she became dizzy and barely made it back to her bed. A fter further discussion with the patient and her daughter, I suspect that her symptoms are related to hypoxemia when she removes her oxygen, and I have urged her to wear her oxygen continuously. A pres criptions was written for a portable home oxygen container for convenience. She had no evidence of a COPD exacerbation and she was continued on her p.r.n. albuterol treatments. I also added Spiriva an d the patient reported some improvement in her shortness of breath after several days on this medicat ion. This will be continued at discharge. An echocardiogram was performed which revealed a normal e jection fraction of 70%, some evidence of diastolic dysfunction, no regional wall motion abnormalitie s, with a normal right ventricular systolic pressure. Pulmonary embolism was also ruled out with a C T pulmonary angiogram. On her CT, there was a questionable 7 mm left lower lobe pulmonary nodule whi ch should be followed up in the outpatient setting with repeat imaging. I discussed this with the amado goodman. The patient underwent PT and OT evaluations and was offered the option for a course at SNF [facility]. However, ultimately she desired to discharge home with home health care and she will also stay with her daughter for additional support. DISPOSITION: Patient is discharged home in stable condition. FOLLOWUP: 1. Dr. Marisol Mejía, primary care physician. 2. Pulmonology. DISCHARGE INSTRUCTIONS: 1. The patient was instructed to wear her oxygen at 2 L/min continuously during the day and night. 2. She will also need a followup on this possible left lower lobe pulmonary nodule with repeat imagi ng in the outpatient setting. DISCHARGE MEDICATIONS: 1. Please see [facility] for completed, updated outpatient medication list. 2. New medications on discharge include Spiriva 18 mcg inhaled once daily. 3. Continue all other medications as prescribed. /[id number]/MODL
== END 2016-10-10 14:43 | disposition home health service (06) | DRG 191 ==
LOC: F1N 14:36 → F3N 18:38 → OBSVTOIN 10-07 14:51
PROVIDERS: ADMIT Hospitalist; ATTEND Hospitalist
DX: J44.9 Chronic obstructive pulmonary disease, unspecified (principal); J96.11 Chronic respiratory failure with hypoxia; E03.9 Hypothyroidism, unspecified; F31.9 Bipolar disorder, unspecified; G47.37 Central sleep apnea in conditions classified elsewhere; R91.1 Solitary pulmonary nodule; Z99.81 Dependence on supplemental oxygen; Z87.891 Personal history of nicotine dependence; Z66 Do not resuscitate
CPT/HCPCS: 96374; 97116-GP; 97161-GP; 97165-GO; 97530-GO; 97530-GP; 97535-GO; G0378; G8978-GP-CJ; G8979-GP-CI; G8987-GO-CI; G8988-GO-CI; G8989-GO-CI; J1650; J2405; Q9967

== ENCOUNTER 2016-12-13 08:44 | Day surgery (SDC) | payer OTHER, BC ==
[2016-12-13] MEDS ORDERED: MIDAZOLAM 2 MG/2 ML VIAL IVP PRN (09:00)
[2016-12-13] MEDS ORDERED: NA BICARBONATE 50 MEQ/50 ML VIAL ONE (09:21)
[2016-12-13] MEDS ORDERED: DEXAMETHASONE 10 MG/ML VIAL ONE (09:21)
[2016-12-13] MEDS ORDERED: IOPAMIDOL (ISOVUE-M 200) 20 ML VIAL IV ONE (09:21)
[2016-12-13] MEDS ORDERED: TRIAMCINOLONE ACETONIDE 40 MG/ML VIAL ONE (09:21)
[2016-12-13] MEDS ORDERED: BUPIVACAINE 0.25% 30 ML SDV ONE (09:21)
[2016-12-13] MEDS ORDERED: LIDOCAINE 1% 30 ML SDV ONE (09:22)
[2016-12-13] MEDS ORDERED: MIDAZOLAM 2 MG/2 ML VIAL ONE ×2 (09:27→09:29)
[2016-12-13] MEDS ORDERED: LIDOCAINE 1% 2 ML INJ ID PRN (09:28)
[2016-12-13] MEDS ORDERED: LR 1,000 ML IV SCH (09:30)
[2016-12-13] MEDS ORDERED: fentaNYL 100 MCG/2 ML INJ ONE (09:30)
--- NOTE | 2016-12-14 15:04 | GPN ---
[f rep st] PROCEDURE NOTE DATE OF PROCEDURE: 12/13/2016 HISTORY OF PRESENT ILLNESS: The patient presents for followup and possible repeat lumbar interlaminar epidural steroid injection. She reports that the last such injection done a year ago gave her significant relief for 9 months with some degree of relief lasting to the present day. She is not taking any blood thinners or antibiotics, and denies allergies to shellfish, latex, contrast dye, and iodine. She denies . PROCEDURE: L1-L2 interlaminar epidural steroid injection. DIAGNOSIS: Lumbar radiculopathy. SITE: Low back. PROVIDER: Fani Palma MD. ANESTHESIA: Local with Versed 2 mg and fentanyl 25 mcg IV. COMPLICATIONS: None. ESTIMATED BLOOD LOSS: Minimal. PRE-PROCEDURE CONSENT: The preprocedure consent was obtained after the risks, benefits, and alternatives of the procedure were explained to the patient. The risks include, but are not limited to, nerve injury, spinal cord injury, paralysis, headache, muscle injury, infection, bleeding, increased pain, and any other unforeseen consequences. The patient agreed and signed the consent for the procedure. PROCEDURE VERIFICATION AND TIMEOUT: Verbal verification of patient, site and procedure was done. All present were in agreement. Please see nursing notes for time of time-out. DESCRIPTION OF PROCEDURE: The patient was identified and placed in a prone position. Under fluoroscopic guidance, the L1-L2 interspace was isolated and the patient's back was prepped and draped in a sterile fashion using ChloraPrep and a fenestrated drape. Then, 2 mL of 1% lidocaine was injected subcutaneously over the target location. After adequate local analgesia was obtained, an 18-gauge, 3-1/2-inch Tuohy needle was advanced via loss of resistance technique into the epidural space using intermittent biplanar fluoroscopic guidance. Loss of resistance was obtained at 5 cm depth. Needle position was confirmed to be correct with biplanar fluoroscopy. After negative aspiration for blood and cerebrospinal fluid, 1 mL of nonionic contrast dye was injected. Good flow of dye was noted in the epidural space. Then, 5 mL of a solution containing 15 mg of dexamethasone in preservative free normal saline was injected in 1 mL increments with negative aspiration in between and no pain or paresthesia upon injection. The patient tolerated the procedure well and was monitored for 30 more minutes with no apparent complications and was discharged home in good condition with a ride. She experienced no side effects from sedation and was instructed not to drive, operate heavy machinery, or make any life altering decisions today. She was instructed to call our clinic with non urgent concerns or 911 in an emergency. In particular, she was taught that new weakness or numbness, changes in bowel or bladder control, fever and swelling, or redness over the injection sites, are all urgent concerns that would warrant calling 911 or going to an emergency care facility. She verbalized understanding and was discharged home with postprocedure instructions. ASSESSMENT AND PLAN: L1-L2 interlaminar lumbar epidural steroid injection done today without complication. The patient was given my contact information for ongoing followup. /[id number]/MODL MTDD
== END 2016-12-13 11:00 | disposition home or self-care (01) ==
LOC: FSGY 08:44
PROVIDERS: ATTEND Anesthesiology
DX: M54.16 Radiculopathy, lumbar region (principal); J45.909 Unspecified asthma, uncomplicated; G47.34 Idiopathic sleep related nonobstructive alveolar hypoventilation; I27.2 Other secondary pulmonary hypertension; Z88.5 Allergy status to narcotic agent; Z88.2 Allergy status to sulfonamides
CPT/HCPCS: J2250; J3010; J3301; Q9966

== ENCOUNTER → 2016-12-24 | Outpatient (CLI) | payer OTHER, BC | LOC: FIMAGING 16:30 | PROVIDERS: ATTEND Family Medicine Geriatric Medicine | DX: Z01.812 Encounter for preprocedural laboratory examination (principal); I25.10 Atherosclerotic heart disease of native coronary artery without angina pectoris; M54.9 Dorsalgia, unspecified; D64.9 Anemia, unspecified; I10 Essential (primary) hypertension ==

== ENCOUNTER → 2016-12-28 | Outpatient (CLI) | payer OTHER, BC ==
--- NOTE | 2016-12-28 13:14 | CPEKG ---
Heart Rate: 88 RR Interval: 682 P-R Interval: 136 QRSD Interval: 82 QT Interval: 376 QTC Interval: 455 P Reno: -19 QRS Reno: -28 T Wave Reno: 56 EKG Severity - ABNORMAL ECG - EKG Impression: SINUS RHYTHM EKG Impression: ABNRM R PROG, CONSIDER ASMI OR LEAD PLACEMENT EKG Impression: SIMILAR FINDINGS ON PRIOR Electronically Signed By: Gilbert Cavazos 30-Dec-2016 00:42:48
== END ==
LOC: FCP 12:53
PROVIDERS: ATTEND Family Medicine Geriatric Medicine
DX: Z01.818 Encounter for other preprocedural examination (principal); R94.31 Abnormal electrocardiogram [ECG] [EKG]

== ENCOUNTER → 2017-07-26 | Outpatient (CLI) | payer OTHER, BC | LOC: FIMAGING 09:16 | PROVIDERS: ATTEND Family Medicine Geriatric Medicine | DX: Z12.31 Encounter for screening mammogram for malignant neoplasm of breast (principal) | CPT/HCPCS: G0202 ==

== ENCOUNTER → 2017-09-15 | Outpatient (CLI) | payer OTHER, BC | LOC: FIMAGING 13:22 | PROVIDERS: ATTEND Internal Medicine Endocrinology, Diabetes & Metabolism | DX: Z13.820 Encounter for screening for osteoporosis (principal); M85.89 Other specified disorders of bone density and structure, multiple sites ==

== ENCOUNTER → 2017-11-24 | Outpatient (CLI) | payer OTHER, BC | LOC: FIMAGING 15:23 | PROVIDERS: ATTEND Family Medicine Geriatric Medicine | DX: R07.81 Pleurodynia (principal) ==

== ENCOUNTER → 2018-02-16 | Outpatient (CLI) | payer OTHER, BC | PROVIDERS: ATTEND Family Medicine Geriatric Medicine | DX: R13.13 Dysphagia, pharyngeal phase (principal) | CPT/HCPCS: 74230; 92611; G8996; G8997; G8998 ==

== ENCOUNTER → 2018-02-20 | Outpatient (CLI) | payer OTHER, BC | LOC: FIMAGING 16:01 | PROVIDERS: ATTEND Family Medicine Geriatric Medicine | DX: M25.552 Pain in left hip (principal) ==

== ENCOUNTER 2018-05-28 20:30 | Emergency (ER) | payer OTHER, BC ==
[2018-05-28] MEDS ORDERED: HYDROCODONE/APAP 5/325 TAB PO ONE (21:23)
--- NOTE | 2018-05-28 22:24 | EDPHY ---
H & P Time Seen by Provider: 05/28/18 20:56 HPI/ROS: CHIEF COMPLAINT: Left hip pain and low back pain HISTORY OF PRESENT ILLNESS: Patient is a 81-year-old female with a history of lumbar fusion and multiple laminectomies here with complaint of low back pain and left hip pain. She states she has been working with physical therapist intensely for hip and back pain for the last month at least and was improving significantly and then about a week ago she felt sudden onset of worsening pain to the left hip and has had difficulty walking since that. She states her physical therapist was told that she may have trochanteric bursitis. She points to her left trochanteric bursa area as source of her pain. She states the pain radiates down the lateral aspect of her leg but denies any numbness or weakness in the leg. She denies any saddle paresthesias or incontinence or fever REVIEW OF SYSTEMS: Constitutional: No fever, no chills. Eyes: No discharge. ENT: No sore throat. Cardiovascular: No chest pain, no palpitations. Respiratory: No cough, no shortness of breath. Gastrointestinal: No abdominal pain, no vomiting. Genitourinary: No hematuria. Musculoskeletal: + back pain. Skin: No rashes. Neurological: No headache. Smoking Status: Former smoker Physical Exam: General Appearance: Alert and no distress. Eyes: Pupils equal and round no injection. Respiratory: Chest is nontender, lungs are clear to auscultation. Cardiac: regular rate and rhythm. Gastrointestinal: Abdomen is soft and nontender, no masses, bowel sounds normal. Musculoskeletal: Neck is supple and nontender. Extremities have full range of motion and are nontender. Skin: No rashes or lesions. Constitutional: Initial Vital Signs Temperature (C) 36.9 C 05/28/18 20:34 Heart Rate 85 05/28/18 20:34 Respiratory Rate 20 05/28/18 20:34 Blood Pressure 119/85 H 05/28/18 20:34 O2 Sat (%) 93 05/28/18 20:34 O2 Delivery Mode Room Air Allergies/Adverse Reactions: codeine [Codeine] Allergy (Severe, Verified 10/31/15 09:45) Nausea levofloxacin [From Levaquin] Allergy (Severe, Verified 10/31/15 09:45) Delirium meperidine HCl [From Demerol] Allergy (Severe, Verified 10/31/15 09:45) Suppressed Respirations Sulfa (Sulfonamide Antibiotics) Allergy (Severe, Verified 10/31/15 09:45) Rash aripiprazole [From Abilify] Allergy (Intermediate, Verified 10/31/15 09:45) hallucinations diazepam [From Valium] Allergy (Verified 10/31/15 09:45) hydromorphone HCl [From Dilaudid] Allergy (Verified 10/31/15 09:45) morphine Allergy (Verified 10/31/15 09:45) Respiratory Arrest Home Medications: Medication Instructions Recorded Levothyroxine [Synthroid 75 mcg 75 mcg PO DAILY06 02/10/12 (*)] Cholecalciferol Vit D3 [Vitamin D3 2,000 units PO BID 08/14/14 (*)] Acetaminophen [Tylenol 325mg (*)] 325 mg PO DAILY PRN 10/06/16 Albuterol [Proventil Neb] 3 ml IH DAILY PRN 10/06/16 C/E/Zn/Cu/OM3/DHA/EPA/LUT/ZEAX 1 each PO BID 10/06/16 [Preservision Areds 2 Softgel] Hydrocodone/APAP 5/325 [[place] 1 tab PO DAILY PRN 10/06/16 5/325 (*)] QUEtiapine FUMARATE [Seroquel 25 275 mg PO HS 10/06/16 mg (*)] lamoTRIgine [LamICTAL 100 MG (*)] 200 mg PO DAILY 10/06/16 Herbal Drugs 12/07/16 Lexapro DAILY06 12/07/16 Hydrocodone/Acetaminophen [[place] 1 each PO Q4 #12 tablet 05/28/18 5/325 (*)] Medical Decision Making - Diagnostics Imaging Results: Imaging Impressions Lumbar Spine CT 05/28/18 21:24 Impression: 1. Well-seated posterior fusion construct extending from L2 to L4. No evidence of hardware loosening or fracture. 2. 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 Findings discussed with Emergency Department physician bar assistant, Bassam Gomez at 05/28/2018 22:15. Pelvis CT 05/28/18 21:24 Impression: 1. No acute fracture or explanation for left-sided hip pain. 2. 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 Findings discussed with Emergency Department physician, Bassam Gomez at 05/28/2018 22:15. ED Course/Re-evaluation: Patient here with chronic low back pain and left hip pain. CT scan reveals no acute fracture or bony injury or severe foraminal or lumbar stenosis. She is ambulatory and has no red flag symptoms to mandate emergent MRI This is likely trochanteric bursa but may be radicular pain from her lumbar spine also. She has excellent follow-up with her physical therapist and her neurosurgeon. Patient feels comfortable and pain improved after 1 dose of [place]. - Data Points Medications Given: Discontinued Medications Hydrocodone Bitart/Acetaminophen ([place] 5/325) 1 tab PO EDNOW ONE Stop: 05/28/18 21:24 Last Admin: 05/28/18 21:29 Dose: 1 tab Departure - Departure Disposition: Home, Routine, Self-Care Clinical Impression: Left hip pain Condition: Good Instructions: Lumbar Disc Herniation (ED) Additional Instructions: Follow-up with your neurosurgeon in the next week to review your CT scan and discuss possible MR I. Addition follow-up with Ear physical therapist to discuss further treatment and possible injection of the trochanteric bursa. Referrals: NONE *PRIMARY CARE P,. [Primary Care Provider] - As per Instructions Prescriptions: Hydrocodone/Acetaminophen [[place] 5/325 (*)] 1 each PO Q4 #12 tablet
[2018-05-28 22:37] VITALS: BP 119/73
== END 2018-05-28 22:36 | disposition home or self-care (01) ==
DX: M25.552 Pain in left hip (principal); M48.07 Spinal stenosis, lumbosacral region; M53.87 Other specified dorsopathies, lumbosacral region; Z87.891 Personal history of nicotine dependence

== ENCOUNTER → 2018-05-30 | Outpatient (CLI) | payer OTHER, BC | LOC: FIMAGING 11:15 | PROVIDERS: ATTEND Family Medicine Geriatric Medicine | DX: R05 Cough (principal) ==

== ENCOUNTER → 2018-07-05 | Outpatient (CLI) | payer OTHER, BC | LOC: FIMAGING 15:02 | PROVIDERS: ATTEND Family Medicine Geriatric Medicine | DX: J40 Bronchitis, not specified as acute or chronic (principal) | CPT/HCPCS: 93306-PO ==

== ENCOUNTER → 2018-11-21 | Outpatient (CLI) | payer OTHER, BC | LOC: FIMAGING 12:44 | PROVIDERS: ATTEND Family Medicine Geriatric Medicine | DX: Z12.31 Encounter for screening mammogram for malignant neoplasm of breast (principal); Z80.3 Family history of malignant neoplasm of breast ==